=== PATIENT | female | born 1970 | race Caucasian/White ===

== ENCOUNTER → 2020-05-24 | Outpatient (CLI) | payer BC | LOC: KOH-I 09:42 | DX: R51.9 Headache, unspecified (principal); J32.9 Chronic sinusitis, unspecified | CPT/HCPCS: 70150; 70260 ==

== ENCOUNTER → 2020-05-25 | Outpatient (CLI) | payer BC | LOC: KOH-I 14:57 | DX: R51.9 Headache, unspecified (principal); Z87.828 Personal history of other (healed) physical injury and trauma | CPT/HCPCS: 70450 ==